=== PATIENT | female | born 2000 | race Two or more races ===

== ENCOUNTER 2024-10-22 14:33 | Emergency (ER) | payer OTHER ==
[2024-10-22] MEDS ORDERED: TUMS500C PO (14:58)
[2024-10-22] MEDS ORDERED: PRENTAB9 PO (14:58)
== END 2024-10-22 14:35 | disposition admitted as inpatient to this hospital (09) ==
LOC: M ED 14:33
DX: Z53.21 Procedure and treatment not carried out due to patient leaving prior to being seen by health care provider (principal)

== ENCOUNTER 2024-10-22 14:42 | Outpatient (CLI) | payer OTHER ==
[~2024-10-22] VITALS: Ht 160 cm; Wt 79.2 kg
[2024-10-22] MEDS ORDERED: PRENTAB9 PO (14:58)
[2024-10-22] MEDS ORDERED: TUMS500C PO (14:58)
[2024-10-22 14:59] VITALS: BP 118/72
[2024-10-22] MEDS ORDERED: HOME MED LIST COMPLETE! XX SCH (15:00)
== END 2024-10-22 15:57 | disposition home or self-care (01) ==
LOC: M LDO 14:42
PROVIDERS: ATTEND Specialist
DX: O26.893 Other specified pregnancy related conditions, third trimester (principal); O34.219 Maternal care for unspecified type scar from previous cesarean delivery; O09.213 Supervision of pregnancy with history of pre-term labor, third trimester; O32.1XX0 Maternal care for breech presentation, not applicable or unspecified; N89.8 Other specified noninflammatory disorders of vagina; Z3A.31 31 weeks gestation of pregnancy
CPT/HCPCS: 59025; 76815; G0463

== ENCOUNTER → 2024-11-02 | Outpatient (CLI) | payer OTHER ==
[~2024-11-02] MED LIST: PRENTAB9 PO; TUMS500C PO
== END ==
LOC: M WHC 07:45 → EDUNIT# 08:00
PROVIDERS: ATTEND Obstetrics & Gynecology
DX: Z34.93 Encounter for supervision of normal pregnancy, unspecified, third trimester (principal)